=== PATIENT | male | born 1950 | race Two or more races ===

== ENCOUNTER 2025-05-04 12:20 | Inpatient (IN) | payer BC ==
[~2025-05-04] VITALS: Ht 182.9 cm; Wt 78.0 kg
[2025-05-04 12:55] LABS: PLATELET COUNT (AUTO) 307 K/uL (150-450); RED BLOOD CELL COUNT(AUTO) 3.74 MIL/uL (4.5-6.0); RED CELL DISTRIBUTION WIDTH 13.8 % (11.5-15.0); WHITE BLOOD COUNT (AUTO) 6.6 K/uL (4.3-11.0)
[2025-05-04 13:03] LABS: CALCIUM, SERUM 8.8 mg/dL (8.5-10.1); CREATININE 1.2 mg/dL (0.6-1.3); SERUM AMMONIA 12 umol/L (11-32); SODIUM SERUM 135 mmol/L (136-145); UREA NITROGEN, BLOOD 11 mg/dL (7-18)
[2025-05-04 13:09] LABS: ALCOHOL, BLOOD < 3 mg/dL (0-10); ASPARTATE AMINOTRANSFERASE 20 U/L (15-37); TOTAL PROTEIN, SERUM 6.6 g/dL (6.4-8.2)
[2025-05-04 13:23] LABS: APPEARANCE,URINE CLEAR (CLEAR); BLOOD, URINE NEGATIVE Ery/uL (NEGATIVE); LEUKOCYTE ESTERASE ,URINE NEGATIVE (NEGATIVE); NITRITE, URINE NEGATIVE (NEGATIVE); UGLUCOSE NEGATIVE (NEGATIVE)
[2025-05-04 13:27] LABS: LACTIC ACID 2.2 mmol/L (0.4-2.0)
[2025-05-04 13:32] LABS: ADD URINE CULTURE NO; HYALINE CASTS, URINE Few /LPF (None Seen); SQUAMOUS EPITHELIAL CELL,UR None Seen /HPF (None Seen)
[2025-05-04 13:35] LABS: AMPHETAMINE, URINE NEGATIVE (NEGATIVE); BARBITURATE, URINE NEGATIVE (NEGATIVE); BENZODIAZEPINE, URINE NEGATIVE (NEGATIVE); CANNABINOID, URINE NEGATIVE (NEGATIVE); COCCAINE, URINE NEGATIVE (NEGATIVE); OPIATE, URINE NEGATIVE (NEGATIVE)
[2025-05-04 14:30] VITALS: O2SAT 99
[2025-05-04] MEDS ORDERED: MAG HYDROX/AL HYDROX/SIMETH 30 ML UDC PO PRN (15:00)
[2025-05-04] MEDS ORDERED: ACETAMINOPHEN 325 MG TABLET PO PRN (15:00)
[2025-05-04] MEDS ORDERED: Z GUARD REMEDY 4 OZ OINT TP PRN (15:00)
[2025-05-04] MEDS ORDERED: MAGNESIUM HYDROXIDE 30 ML UDC PO PRN (15:00)
[2025-05-04] MEDS ORDERED: ONDANSETRON HCL/PF 4 MG/2 ML VIAL IVP PRN (15:00)
[2025-05-04 16:00] VITALS: BP 130/100; TEMP 97.5; O2SAT 97
[2025-05-04] MEDS: ENOXAPARIN SODIUM 40 MG/0.4 ML DISP.SYRIN SQ SCH (16:18)
[2025-05-04] MEDS ORDERED: HYDR500C PO (16:51)
[2025-05-04] MEDS ORDERED: LORA-259 PO (16:51)
[2025-05-04] MEDS ORDERED: ESCI10TA PO (16:51)
[2025-05-04] MEDS ORDERED: HYDR500C2 PO (16:51)
[2025-05-04 20:00] VITALS: BP 119/73; TEMP 97.9; O2SAT 97
[2025-05-05] VITALS: BP 119/69; TEMP 97.9; O2SAT 98
[2025-05-05 04:00] VITALS: BP 113/65; TEMP 97.7; O2SAT 97
[2025-05-05] MEDS: IV NS 0.9% 1,000 ML IV PRN (04:54)
[2025-05-05 07:12] LABS: PLATELET COUNT (AUTO) 246 K/uL (150-450); RED BLOOD CELL COUNT(AUTO) 3.51 MIL/uL (4.5-6.0); RED CELL DISTRIBUTION WIDTH 13.9 % (11.5-15.0); WHITE BLOOD COUNT (AUTO) 5.7 K/uL (4.3-11.0)
[2025-05-05 07:18] LABS: CALCIUM, SERUM 8.5 mg/dL (8.5-10.1); PHOSPHORUS 3.0 mg/dL (2.5-4.9); SODIUM SERUM 143.0 mmol/L (136-145); UREA NITROGEN, BLOOD 10.0 mg/dL (7-18)
[2025-05-05 07:39] LABS: CREATININE 1.1 mg/dL (0.6-1.3)
[2025-05-05 08:10] VITALS: BP 139/79; TEMP 97.7; O2SAT 98
[2025-05-05] MEDS ORDERED: LORAZEPAM 1 MG TABLET PO PRN (11:00)
[2025-05-05] MEDS: ASPIRIN 325 MG TABLET PO SCH (11:33)
[2025-05-05] MEDS: ESCITALOPRAM OXALATE (10 MG) 10 MG TABLET PO SCH (11:33)
[2025-05-05] MEDS: LORAZEPAM 1 MG TABLET PO STA (11:33)
[2025-05-05] MEDS: HYDROXYUREA 500 MG CAPSULE PO SCH (11:33)
[2025-05-05 16:17] VITALS: BP 137/74; TEMP 97.9; O2SAT 96
[2025-05-05] MEDS ORDERED: LORAZEPAM 1 MG TABLET PO SCH (17:00)
[2025-05-06] MEDS ORDERED: HYDROXYUREA 500 MG CAPSULE PO SCH (10:12)
== END 2025-05-05 17:46 | disposition home or self-care (01) | DRG 640 ==
LOC: ER 12:31 → MED 14:53 → TELE 15:38 → MED 05-05 09:41
PROVIDERS: ADMIT Internal Medicine; ATTEND Internal Medicine
DX: E86.0 Dehydration (principal); G93.41 Metabolic encephalopathy; F03.90 Unspecified dementia, unspecified severity, without behavioral disturbance, psychotic disturbance, mood disturbance, and anxiety; Z79.899 Other long term (current) drug therapy; F41.9 Anxiety disorder, unspecified; E87.20 Acidosis, unspecified
CPT/HCPCS: 36415; 70450-TC; 71045-TC; 80048-TC; 80076-TC; 81001; 82140-TC; 82962-TC; 83605-TC; 83735-TC; 84100-TC; 84439-TC; 84443-TC; 84484-TC; 85025-TC; G0378; G0480; J1650